=== PATIENT | male | born 1945 | race African-American/Black ===

== ENCOUNTER 2021-06-14 16:13 | Emergency (ER) | payer MEDICARE, OTHER ==
[~2021-06-14] VITALS: Ht 15.2 cm; Wt 103.0 kg
[2021-06-14] MEDS ORDERED: INDOMETHACIN 25 MG CAP PO ONE (17:45)
[2021-06-15 00:30] VITALS: BP 163/81
== END 2021-06-15 00:30 | disposition home or self-care (01) ==
LOC: ER 16:13
DX: M10.9 Gout, unspecified (principal); E11.9 Type 2 diabetes mellitus without complications
CPT/HCPCS: 73562; 93971